=== PATIENT | female | born 1995 | race Caucasian/White ===

== ENCOUNTER 2017-05-20 05:38 | Emergency (ER) | payer OTHER ==
[~2017-05-20] VITALS: Ht 160 cm; Wt 58.0 kg
[~2017-05-20 05:38] MED LIST: AMOX875T20 PO; IBUP600T26 PO; PRED50 PO
[2017-05-20 05:41] VITALS: BP 170/76; PULSE 75; RESP 15; TEMP 98.8; O2SAT 100
[2017-05-20 06:01] VITALS: TEMP 99
[2017-05-20] MEDS ORDERED: SODIUM CHLOR 0.9% 1000 ML INJ 1,000 ML IV ONE (06:15)
[2017-05-20] MEDS ORDERED: CLIN2CRE VAGINAL (06:17)
[2017-05-20 06:41] VITALS: BP 140/87; PULSE 80; RESP 18; O2SAT 100
--- NOTE | 2017-05-20 06:46 | PD ---
HPI Chief Complaint: Cardiac Complaint Time Seen by Provider: 06:03 Travel History International Travel<30 days: No Contact w/Intl Traveler<30days: [place] Traveled to: [place] Traveled to known affect area: No History of Present Illness HPI 22-year-old female came to the emergency room with history of chest pain, shortness of breath and body aches since past 2 days. Patient says that 2 days ago she was not feeling too good and was having some lower abdominal pain. She has history of ovarian cysts and hence she went to see her COMPENSATION ADVISOR. Her COMPENSATION ADVISOR while doing a pelvic exam pulled out a tampon that could've been there for 2 weeks. She was discharged home with clindamycin vaginal cream. Patient has been using it like she supposed to. However her symptoms have continued to some extent. Patient is concerned about toxic shock syndrome and hence she is here. Vital signs are stable. Patient is afebrile. Patient is awake and answering questions appropriately. She does not appear to be in any significant distress. [facility] Past Medical History Narrative Medical List of her past medical, surgical, social and family history is reviewed from the nursing note. Diminished Hearing: No Reproductive: Yes (OVARIAN CYST) Immunizations Current: Yes ?: Not LMP: 04/28/17 Past Surgical History Other Surgery: Yes (BREAST AUGMENTATION) Social History Alcohol Use: Yes (OCC) Tobacco Use: No Substance Use: No Allergies-Medications (Allergen,Severity, Reaction): Coded Allergies: No Known Allergies (Verified Adverse Reaction, Unknown, 05/20/17) Comments No known allergies Reported Meds & Prescriptions Reported Meds & Active Scripts Active Reported Clindamycin Vaginal Cream (Clindamycin Phosphate) 2% Cream 1 Appl VAGINAL HS Narrative Medication List of her home medications reviewed from the nursing note. Review of Systems Except as stated in HPI: all other systems reviewed are Neg Cardiovascular: Positive: Chest Pain or Discomfort, Palpitations Musculoskeletal: Positive: Myalgias Physical Exam Narrative GENERAL: Awake, alert, no obvious distress SKIN: Focused skin assessment warm/dry. HEAD: Atraumatic. Normocephalic. EYES: Pupils equal and round. No scleral icterus. No injection or drainage. ENT: No nasal bleeding or discharge. Mucous membranes pink and moist. NECK: Trachea midline. No JVD. CARDIOVASCULAR: Regular rate and rhythm. No murmur appreciated. RESPIRATORY: No accessory muscle use. Clear to auscultation. Breath sounds equal bilaterally. GASTROINTESTINAL: Abdomen soft, non-tender, nondistended. Hepatic and splenic margins not palpable. MUSCULOSKELETAL: No obvious deformities. No clubbing. No cyanosis. No edema. NEUROLOGICAL: Awake and alert. No obvious cranial nerve deficits. Motor grossly within normal limits. Normal speech. PSYCHIATRIC: Appropriate mood and affect; insight and judgment normal. Data Data Last Documented VS Orders Orders Complete Blood Count With Diff (05/20/17 06:03) Basic Metabolic Panel (Bmp) (05/20/17 06:03) Creatine Kinase (Cpk) (05/20/17 06:03) Sodium Chlor 0.9% 1000 Ml Inj (Ns 1000 M (05/20/17 06:15) D-Dimer (05/20/17 08:12) Electrocardiogram (05/20/17 ) Chest, Pa & Lat (05/20/17 ) Ed Discharge Order (05/20/17 09:45) Labs Laboratory Tests Test 05/20/17 06:15 05/20/17 08:15 White Blood Count 8.5 TH/MM3 Red Blood Count 4.44 MIL/MM3 Hemoglobin 13.6 GM/DL Hematocrit 40.3 % Mean Corpuscular Volume 90.8 FL Mean Corpuscular Hemoglobin 30.7 PG Mean Corpuscular Hemoglobin Concent 33.8 % Red Cell Distribution Width 12.5 % Platelet Count 188 TH/MM3 Mean Platelet Volume 9.1 FL Neutrophils (%) (Auto) 63.5 % Lymphocytes (%) (Auto) 25.0 % Monocytes (%) (Auto) 8.7 % Eosinophils (%) (Auto) 2.1 % Basophils (%) (Auto) 0.7 % Neutrophils # (Auto) 5.4 TH/MM3 Lymphocytes # (Auto) 2.1 TH/MM3 Monocytes # (Auto) 0.7 TH/MM3 Eosinophils # (Auto) 0.2 TH/MM3 Basophils # (Auto) 0.1 TH/MM3 CBC Comment DIFF FINAL Differential Comment Blood Urea Nitrogen 8 MG/DL Creatinine 0.76 MG/DL Random Glucose 97 MG/DL Calcium Level 8.7 MG/DL Sodium Level 141 MEQ/L Potassium Level 4.0 MEQ/L Chloride Level 106 MEQ/L Carbon Dioxide Level 27.3 MEQ/L Anion Gap 8 MEQ/L Estimat Glomerular Filtration Rate 93 ML/MIN Total Creatine Kinase 57 U/L D-Dimer Quantitative (PE/DVT) LESS THAN 0.19 MG/L FEU MDM Medical Decision Making Medical Screen Exam Complete: Yes Emergency Medical Condition: Yes Medical Record Reviewed: Yes Differential Diagnosis Dehydration, electrolyte abnormalities Narrative Course 6:45 AM patient is getting 1 L of IV fluid bolus. Orthostatic vital signs were done chart within normal limits. Awaiting for blood test results to come back. Case will be signed over to the oncoming ER physician. Procedures EKG Prior to Arrival: Nelly Gan MD May 20, 2017 06:45
[2017-05-20 06:49] LABS: AUTOMATED NEUTROPHIL # 5.4 TH/MM3 (1.8-7.7); BASOPHIL # 0.1 TH/MM3 (0-0.2); BASOPHIL % 0.7 % (0.0-2.0); EOSINOPHIL # 0.2 TH/MM3 (0-0.4); EOSINOPHIL % 2.1 % (0.0-4.0); HEMATOCRIT 40.3 % (35.0-46.0); HEMO FLAGS DIFF FINAL; LYMPHOCYTE # 2.1 TH/MM3 (1.0-4.8); MEAN CELL VOLUME 90.8 FL (80.0-100.0); MEAN CORPUSCULAR HEMOGLOBIN 30.7 PG (27.0-34.0); MEAN CORPUSCULAR HGB CONC 33.8 % (32.0-36.0); MONO % 8.7 % (0.0-8.0); NEUT % 63.5 % (16.0-70.0); PLATELET COUNT 188 TH/MM3 (150-450); RED BLOOD COUNT 4.44 MIL/MM3 (4.00-5.30); RED CELL DISTRIBUTION WIDTH 12.5 % (11.6-17.2); WHITE BLOOD COUNT 8.5 TH/MM3 (4.0-11.0)
[2017-05-20 07:05] LABS: BICARBONATE 27.3 MEQ/L (21.0-32.0)
[2017-05-20 07:35] VITALS: BP 123/68; PULSE 78; RESP 16; O2SAT 98
--- NOTE | 2017-05-20 09:39 | RADRPT ---
EXAM DATE/TIME: 05/20/2017 08:25 [place] COMPARISON: No previous studies available for comparison. INDICATIONS : Short of breath, chest pressure MEDICAL HISTORY : None. SURGICAL HISTORY : None. ENCOUNTER: Initial ACUITY: 4 - 6 days PAIN SCORE: 0/10 LOCATION: chest FINDINGS: PA and lateral views of the chest demonstrate the lungs to be symmetrically aerated without evidence of mass, infiltrate or effusion. The cardiomediastinal contours are unremarkable. Osseous structure s are intact. Scoliotic curvature. CONCLUSION: Normal examination. Иван Bird Jr., MD on May 20, 2017 at 9:37 Board Certified Radiologist. This report was verified electronically.
--- NOTE | 2017-05-20 09:45 | PD ---
Physical Exam Narrative Patient signed out to me by Dr. Ramsey. Please see her documentation for complete details. Briefly, patient is a 22-year-old female that has been experiencing chest tightness with shortness of breath and palpitations since having back from a cruise on Wednesday. She is worried because she a tampon in place for at least 5 days and is worried she has an infection. Labs show heart rate is regular in rate and rhythm. Lungs are clear to auscultation. She has no leg swelling or calf tenderness. Data Data Last Documented VS Vital Signs Date Time Temp Pulse Resp B/P (MAP) Pulse Ox O2 Delivery O2 Flow Rate FiO2 05/20/17 07:35 78 16 123/68 (86) 98 Room Air 05/20/17 06:01 99.0 Orders Orders Complete Blood Count With Diff (05/20/17 06:03) Basic Metabolic Panel (Bmp) (05/20/17 06:03) Creatine Kinase (Cpk) (05/20/17 06:03) Sodium Chlor 0.9% 1000 Ml Inj (Ns 1000 M (05/20/17 06:15) D-Dimer (05/20/17 08:12) Electrocardiogram (05/20/17 ) Chest, Pa & Lat (05/20/17 ) Labs Laboratory Tests Test 05/20/17 06:15 05/20/17 08:15 White Blood Count 8.5 TH/MM3 Red Blood Count 4.44 MIL/MM3 Hemoglobin 13.6 GM/DL Hematocrit 40.3 % Mean Corpuscular Volume 90.8 FL Mean Corpuscular Hemoglobin 30.7 PG Mean Corpuscular Hemoglobin Concent 33.8 % Red Cell Distribution Width 12.5 % Platelet Count 188 TH/MM3 Mean Platelet Volume 9.1 FL Neutrophils (%) (Auto) 63.5 % Lymphocytes (%) (Auto) 25.0 % Monocytes (%) (Auto) 8.7 % Eosinophils (%) (Auto) 2.1 % Basophils (%) (Auto) 0.7 % Neutrophils # (Auto) 5.4 TH/MM3 Lymphocytes # (Auto) 2.1 TH/MM3 Monocytes # (Auto) 0.7 TH/MM3 Eosinophils # (Auto) 0.2 TH/MM3 Basophils # (Auto) 0.1 TH/MM3 CBC Comment DIFF FINAL Differential Comment Blood Urea Nitrogen 8 MG/DL Creatinine 0.76 MG/DL Random Glucose 97 MG/DL Calcium Level 8.7 MG/DL Sodium Level 141 MEQ/L Potassium Level 4.0 MEQ/L Chloride Level 106 MEQ/L Carbon Dioxide Level 27.3 MEQ/L Anion Gap 8 MEQ/L Estimat Glomerular Filtration Rate 93 ML/MIN Total Creatine Kinase 57 U/L D-Dimer Quantitative (PE/DVT) LESS THAN 0.19 MG/L FEU MDM Supervised Visit with MAKSIM: No Interpretation(s) ECG shows normal sinus rhythm, no ST elevation or depression, normal intervals Narrative Course Labs show no acute abnormalities. White count is within normal limits. Hemoglobin is within normal limits. D-dimer is negative. Chest x-ray shows no acute abnormalities. Patient reassured. She is comfortable discharge at this time. She is advised follow-up with a primary care doctor. Advised to return to the ED as needed for any worsening symptoms. Diagnosis Primary Impression: Palpitations Patient Instructions: General Instructions, Heart Palpitations (ED) Additional Instruction: Drink plenty of fluids. Follow-up with her primary care doctor. Return to the ED as needed for any worsening symptoms. Disposition: 01 DISCHARGE HOME Condition: Stable Amrita Callahan MD May 20, 2017 09:45
--- NOTE | 2017-05-21 17:59 | EKG ---
Date Performed: 05/20/2017 Time Performed: 08:21:23 PTAGE: 22 years EKG: Sinus rhythm WITH SINUS ARRHYTHMIA NORMAL ECG NO PREVIOUS TRACING DOCTOR: Carloz Arias Interpretating Date/Time 05/21/2017 17:58:14
== END 2017-05-20 10:30 | disposition home or self-care (01) ==
LOC: NEPE 05:38
DX: R00.2 Palpitations (principal); R07.89 Other chest pain; R06.02 Shortness of breath; M79.1 Myalgia; I49.9 Cardiac arrhythmia, unspecified
CPT/HCPCS: 71020; 80048; 82550; 85025; 85379; 93005; 96360; 99285; J7030